=== PATIENT | female | born 1995 | race Caucasian/White ===

== ENCOUNTER → 2019-06-01 09:32 | Outpatient (BNVA) | payer OTHER, SELFPAY | PROVIDERS: Visit Provider Nurse Practitioner Women's Health | DX: Z01.89 Encounter for other specified special examinations (principal) ==

== ENCOUNTER → 2020-12-18 14:33 | Outpatient (BNVA) | payer OTHER, SELFPAY | PROVIDERS: Visit Provider Nurse Practitioner Women's Health | DX: N92.6 Irregular menstruation, unspecified (principal) | CPT/HCPCS: 81025; 84702 ==

== ENCOUNTER → 2021-01-03 09:34 | Outpatient (BNVA) | payer OTHER, SELFPAY | PROVIDERS: Visit Provider Nurse Practitioner Women's Health | DX: Z34.90 Encounter for supervision of normal pregnancy, unspecified, unspecified trimester (principal) | CPT/HCPCS: 81000 ==

== ENCOUNTER → 2021-08-06 13:35 | Outpatient (BNVA) | payer SELFPAY | PROVIDERS: Visit Provider Obstetrics & Gynecology | DX: Z34.91 Encounter for supervision of normal pregnancy, unspecified, first trimester (principal); Z3A.10 10 weeks gestation of pregnancy | CPT/HCPCS: 76801 ==

== ENCOUNTER → 2021-08-13 09:55 | Outpatient (BNVA) | payer SELFPAY | PROVIDERS: Visit Provider Obstetrics & Gynecology | DX: Z34.80 Encounter for supervision of other normal pregnancy, unspecified trimester (principal) | CPT/HCPCS: 80307; 84315; 85027; 86592; 86762; 86803; 86850; 86900; 87086; 87340 ==

== ENCOUNTER → 2021-08-19 09:31 | Outpatient (BNVA) | payer SELFPAY | PROVIDERS: Visit Provider Obstetrics & Gynecology | DX: Z34.80 Encounter for supervision of other normal pregnancy, unspecified trimester (principal) | CPT/HCPCS: 84315; 87491; 87591 ==

== ENCOUNTER 2021-11-11 09:06 | Outpatient (CLI) | payer OTHER, SELFPAY ==
--- NOTE | 2021-11-11 09:30 | US_ITS ---
WS: [id number] ULTRASOUND OB FOCUSED HISTORY: Follow-up profile, diaphragm and nose. COMPARISON: 08/06/2021 Single intrauterine gestation in cephalic position. Cervix is closed measuring 6.4 cm. Placenta is an terior with no previa or abruption. heart rate at 147 BPM. Additional imaging of the profile, diaphragm and nose demonstrates no abnormality. US/US OB limited [id number] IMPRESSION: Follow-up imaging of the profile, diaphragm and nose are negative. No abn ormality identified.
== END 2021-11-11 09:07 | disposition home or self-care (01) ==
LOC: RAD 09:07
PROVIDERS: Visit Provider Obstetrics & Gynecology
DX: Z34.80 Encounter for supervision of other normal pregnancy, unspecified trimester (principal)
CPT/HCPCS: 76805; 76815

== ENCOUNTER → 2021-12-10 09:49 | Outpatient (BNVA) | payer OTHER, SELFPAY | PROVIDERS: Visit Provider Obstetrics & Gynecology | DX: Z34.80 Encounter for supervision of other normal pregnancy, unspecified trimester (principal) | CPT/HCPCS: 82950; 84315; 85027 ==

== ENCOUNTER → 2022-02-05 09:44 | Outpatient (BNVA) | payer OTHER, SELFPAY | PROVIDERS: Visit Provider Nurse Practitioner Women's Health | DX: Z34.80 Encounter for supervision of other normal pregnancy, unspecified trimester (principal) | CPT/HCPCS: 84315; 87081 ==

== ENCOUNTER → 2022-02-11 11:45 | Outpatient (BNVA) | payer OTHER, SELFPAY | PROVIDERS: Visit Provider Nurse Practitioner Women's Health | DX: Z34.80 Encounter for supervision of other normal pregnancy, unspecified trimester (principal) | CPT/HCPCS: 81000 ==

== ENCOUNTER 2022-03-01 18:52 | Inpatient (IN) | payer OTHER, SELFPAY ==
[2022-03-01] VITALS (11 sets, daily range): BP systolic 109–143; BP diastolic 61–82; PULSE 76–95; RESP 16; BMI 37.8
[2022-03-01 17:50] LABS: Basophils % 0.2 %; Eosinophils # 0.1 10^3/uL (0.0-0.8); Eosinophils % 0.5 %; Hematocrit 23.3 % (37.0-47.0); Hemoglobin 7.1 g/dL (11.5-15.3); Lymphocytes # 2.1 10^3/uL (0.8-4.8); Lymphocytes % 14.1 %; Mean Corpuscular HGB Conc 30.5 g/dL (30.0-36.0); Mean Corpuscular Hemoglobin 31.4 pg (28.0-34.0); Mean Corpuscular Volume 103.1 fl (81-99); Mean Platelet Volume 10.3 fL (7.4-10.4); Monocytes # 0.7 10^3/uL (0.2-0.9); Monocytes % 4.8 %; Neutrophils # 11.62 10^3/uL (1.8-7.7); Nucleated Red Blood Cells % 0 %; Platelet Count 148 10^3/cmm (130-400); Red Blood Count 2.26 10^6/uL (4.1-5.3); Red Cell Distribution Width 17.2 % (12.1-15.1); White Blood Count 14.9 10^3/uL (4.0-10.0)
[2022-03-01] MEDS: miSOPROStol 100 mcg tablet 25 MCG VAGINAL (18:02)
[2022-03-01] MEDS: dextrose 5%-lactated ringers 1,000 ML 125 ML IV (18:02)
[2022-03-01] MEDS: ampicillin 2,000 MG in sodium chloride 0.9% (plus) 50 ML 100 MG IV (18:06)
--- NOTE | 2022-03-01 18:34 | PM.OPHPUD ---
Labor & Delivery H&P Update Date of Procedure: March 02, 2022 Date H&P Performed: 02/28/22 H&P update information: I have reviewed H&P completed within last 30 days, I have examined patient prior to procedure and No changes to prior documentation Admission Diagnosis: Preop diagnosis: expected
[2022-03-01] MEDS: ampicillin 1,000 MG in sodium chloride 0.9% (plus) 50 ML 100 MG IV (21:57)
[2022-03-02] VITALS (66 sets, daily range): BP systolic 95–145; BP diastolic 51–86; PULSE 74–112; RESP 14–16; TEMP 35.7–36.8; O2SAT 94–100
[2022-03-02] MEDS: miSOPROStol 100 mcg tablet 25 MCG VAGINAL (00:07)
[2022-03-02] MEDS: ampicillin 1,000 MG in sodium chloride 0.9% (plus) 50 ML 100 MG IV ×3 (01:54→10:16)
[2022-03-02] MEDS: lactated ringers 1,000 ML 999 ML IV (05:05)
--- NOTE | 2022-03-02 06:21 | ANES.PREANE2 ---
Pre-Anesthetic Assessment Height/Weight: Height 1.63 m Weight 99.79 kg Temp Pulse Resp BP Pulse Ox O2 Del Method 97.8 F 88 16 122/60 94 03/02/22 05:37 03/02/22 06:20 03/01/22 17:21 03/02/22 06:20 03/02/22 06:14 03/01/22 16:55 Preop Diagnosis: expected labor epidural Familial anesthetic complications: none Was Beta Onesimo taken within 24 hours: N/A Was Clonidine taken within 24 hours: N/A Last Intake: 05:00 Social No alcohol and No tobacco Exam alert, oriented x 3, clear to auscultation bilaterally and regular rate & rhythm Airway Submandibular: within normal limits Cervical ROM: within normal limits Mallampati: Class II History/ROS No significant history except as noted Pulmonary None reported CV/HEM Anemia None reported Hepatic None reported GI Gastroesophageal Reflux Disease Metabolic None reported Musc/skel None reported Neuropsych None reported Anesthetic Plan ASA status: 2 Anesthesia: Anesthesia Evaluation, Eval. for regional block and Regional (specify below) Risk of > 500 ml blood loss (7ml/kg in children): No Medications/Allergies Home Medications Medication Instructions Recorded Confirmed Last Taken Type prenat.vits,sunitha,[id number]-yqqw-hjswg 1 tab PO DAILY 12/18/20 03/01/22 03/01/22 08:00 History ferrous sulfate 325 mg (65 mg 325 mg PO BID 12/25/21 03/01/22 03/01/22 08:00 History iron) tablet,delayed release Allergies Allergy/AdvReac Type Severity Reaction Status Date / Time No Known Allergies Allergy Verified 03/01/22 17:42 Current Medications Generic Name Dose Route Start Last Admin Trade Name Argenis PRN Reason Stop Dose Admin Dextrose/Lactated Ringer's 1,000 mls @ 125 mls/hr 03/01/22 17:30 03/02/22 02:11 Dextrose 5%-Lactated Ringers IV 125 mls/hr .Q8H CONSUELO Infusion Ampicillin Sodium 1,000 mg/ 50 mls @ 100 mls/hr 03/01/22 21:30 03/02/22 06:00 Sodium Chloride IV 100 mls/hr Q4H CONSUELO Administration Protocol Ropivacaine 200 mg in 100 mls @ 13 mls/hr 03/02/22 05:15 03/02/22 06:16 Naropin Premix EPIDURAL 13 mls/hr .Q7H42M CONSUELO Administration Lactated Ringer's 1,000 mls @ 999 mls/hr 03/02/22 05:05 03/02/22 05:05 Lactated Ringers IV 999 mls/hr .Q1H1M PRN Administration See label comments [facility] Anesthesia Medical History No pertinent past medical history Denies diabetes, asthma, hypertension, seizures, DVT/PE PCP: None Surgical History No pertinent past surgical history Family History Grandfather Hypertension Paternal Family/Other Diabetes Paternal Uncle Denies family history of Colon cancer Ovarian cancer Heart disease Breast cancer Uterine cancer Thyroid disease Stroke Social History Smoking and tobacco status: never smoked Female Reproductive History : 4 Data Anesthesia : 03/01/22 17:20 Short CBC 03/01/22 Range/Units 17:20 WBC 14.9 H (4.0-10.0) 10^3/uL Hgb 7.1 L (11.5-15.3) g/dL Hct 23.3 L (37.0-47.0) % MCV 103.1 H (81-99) fl Plt Count 148 (130-400) 10^3/cmm Neut % (Auto) 78.0 % Neut # (Auto) 11.62 H (1.8-7.7) 10^3/uL Cardiac Studies: No Data to Display Anesthesia Procedures Date of Procedure 03/02/22 Epidural Time Out Performed: Yes Consents Signed: Procedure Consent Consent: requested by attending/covering physician, from patient, risks and benefits reviewed and patient agrees to proceed Lumbar Level: L4-L5 Epidural position: sitting Epidural procedure: sterile prep of area, 1% lidocaine to numb the area, 18 g needle, negative for paresthesia passed, neg for paresthesia, test dose given, 1.5% xylocaine 1:200k epi, placed PCEA, no systemic response, sterile dressing applied, L.U.D. no apparent complications and 0.2% Ropiavacaine @ mls/hr (13)
[2022-03-02] MEDS: dextrose 5%-lactated ringers 1,000 ML 125 ML IV ×2 (12:36→15:27)
[2022-03-02] MEDS: metoclopramide 5 mg/mL SDV 2 mL 10 MG IV (12:58)
[2022-03-02] MEDS: famotidine 20 mg/2 mL INJ IVP (12:59)
--- NOTE | 2022-03-02 14:35 | P.OP_ITS ---
Operative Report Date of procedure: March 02, 2022 Pre-op diagnosis: Preop Diagnosis elective induction, expected , anemia Failure to progress, nonreassuring status Post-op diagnosis: Same as above Procedure done: Primary low transverse delivery Implants: None Specimens removed/disposition: Cord blood sample Surgeon: Bj Hayden MD Estimated blood loss (mL): 1,000 IV fluids (mL): 1,300 Urine output (mL): 600 Procedure: After assuring informed consent, the patient was taken to the operating room and anesthesia was initiated. She was placed in the dorsal supine position with a left lateral tilt. The abdomen was prepped and draped in the usual sterile manner. A time-out procedure was performed. A Pfannenstiel skin incision was made with the scalpel and carried through to the underlying layer of fascia with the Bovie. The fascia was nicked in the midline and the incision extended laterally with the Chao scissors. The superior aspect of the fascial incision was then grasped with Amanda clamps and elevated and the underlying rectus muscle dissected off bluntly and sharp with chao scissors. Attention was then turned to the inferior aspect of the incision which, in similar fashion, was grasped and tented up with Amanda clamps and the rectus muscle dissected bluntly. The rectus muscles were then in the midline and the peritoneum identified, tented up and entered sharply with Metzenbaum scissors. The peritoneal incision was then extended superiorly and inferiorly with good visualization of the bladder. The Dominguez O retractor was then inserted and the vesicouterine p eritoneum identified, grasped with pickups and entered sharply with Metzenbaum scissors. This incision was then extended laterally and the bladder flap created digitally. The uterus incised in a low transverse fashion with the scalpel. The uterine incision was then extended with the bandage scissors. The infant was then delivered in the cephalic presentation atraumatically mentum posterior we will nuchal cord at 0816 hours. The nose and the mouth were suctioned with bulb and the cord clamped and cut. The cord was normal and had three vessels. Amniotic fluid was clear. The placenta was then removed manually and the uterus exteriorized and cleared of all clots and debris. The uterine incision was repaired with 0 Vicryl in a running-locked fashion. A second layer of the same suture was used to obtain excellent hemostasis. The gutters were cleared of all clots. The uterus was then returned to the abdomen. The rectus muscles were approximated with 3-0 chromic gut. The fascia was reapproximated with 0 Vicryl in an interrupted running fashion. The skin was closed with Insorb?s subcuticular absorbable marysol. The incision was infiltrated with Exparel for pain management. The patient tolerated the procedure well. The sponge, lap and needle counts were correct times three.
[2022-03-02] MEDS: docusate sodium 100 mg Capsule PO (18:02)
[2022-03-02] MEDS: ferrous sulfate EC 325 mg Tablet PO (18:02)
[2022-03-02] MEDS: ketorolac 30 mg/mL INJ IVP (18:02)
--- NOTE | 2022-03-02 21:13 | PC.NURSE ---
pt ambulated from chair to bed at this time. tolerated well. pt is now resting comfortably in bed
[2022-03-03] MEDS: ketorolac 30 mg/mL INJ IVP ×3 (00:15→11:06)
[2022-03-03] MEDS: dextrose 5%-lactated ringers 1,000 ML 125 ML IV (00:16)
[2022-03-03 02:41] LABS: Hematocrit 30.6 % (37.0-47.0); Hemoglobin 10.4 g/dL (11.5-15.3); Mean Corpuscular Hemoglobin 29.7 pg (28.0-34.0); Mean Corpuscular Volume 87.4 fl (81-99); Mean Platelet Volume 10.2 fL (7.4-10.4); Platelet Count 106 10^3/cmm (130-400); Red Cell Distribution Width 14.2 % (12.1-15.1); White Blood Count 13.6 10^3/uL (4.0-10.0)
[2022-03-03 04:03] VITALS: BP 127/77; PULSE 106
--- NOTE | 2022-03-03 07:32 | PC.NURSE ---
Met with patient, patient stated that she was feeling very frustrated while having at the breast and that she felt that formula feeding would be a better choice for them. Educated on engorgement, when it is likely to happen, firm fitting bra, cool packs and Ibuprofen for discomfort. Let patient know that if those tools are not enough that she can call and speak to the IBCLC and/or come in for a consultation.
[2022-03-03] MEDS: ferrous sulfate EC 325 mg Tablet PO ×2 (09:18→18:55)
[2022-03-03] MEDS: prenatal vitamin Capsule 1 CAP PO (09:18)
[2022-03-03] MEDS: docusate sodium 100 mg Capsule PO ×2 (09:18→18:56)
[2022-03-03 09:21] VITALS: BP 112/56; PULSE 96; TEMP 36
[2022-03-03 15:00] VITALS: BP 114/72; PULSE 89; RESP 18; TEMP 36.8
[2022-03-03] MEDS: ibuprofen 800 mg tablet PO (20:22)
[2022-03-03 20:28] VITALS: BP 135/73; PULSE 112
[2022-03-04 03:59] VITALS: TEMP 36
[2022-03-04 04:00] VITALS: BP 122/64; PULSE 89
[2022-03-04] MEDS: prenatal vitamin Capsule 1 CAP PO (08:17)
[2022-03-04] MEDS: ferrous sulfate EC 325 mg Tablet PO (08:17)
[2022-03-04] MEDS: docusate sodium 100 mg Capsule PO (08:17)
[2022-03-04] MEDS: ibuprofen 800 mg tablet PO (08:17)
--- NOTE | 2022-03-04 10:36 | ANE.PACU2 ---
Inpatient post-anesthesia follow up: Airway intact: Yes Vital signs: Temperature 96.8 F Pulse Rate 89 Respiratory Rate 18 Blood Pressure 122/64 Pulse Oximetry 100 Oxygen Delivery Me thod Room Air Oxygen Flow Rate 10 Fraction of Inspir ed Oxygen Hydration adequate: Yes Nausea and vomiting: No Pain level: 1 Mental status: Baseline
--- NOTE | 2022-03-04 12:15 | P.DS_ITS ---
Discharge Providers TRANSFORMATION ANALYST Date of Admission: 03/01/22 18:52 Date of Discharge: 03/04/22 Attending Provider at Admission: Bj Hayden MD Attending Provider at Discharge: Bj Hayden MD Primary TRANSFORMATION ANALYST: Katy Pruitt Reason for Visit Reason for Visit: Scheduled Induction Hospital Course Hospital Course Mrs. Nieto be 26-year-old female admitted for elective induction at term. She progressed to about 9 cm in dilation stay at that dilation nearly 4 hours without any progression, initial phase presentation suspected. Primary low termor delivery was performed due to failure to progress. Postop observation was uneventful. She is after vital hemodynamically stable postoperative day 1. Ambulating well without difficulty, and tolerating diet well Information Peripartum Data: Infant Delivery Method: Physical Exam Narrative: GA; alert and oriented x 3 HEENT: normal Breasts: engorged Nipples - skin intact Lungs; clear to auscultation Heart: regular rhythm, no murmurs. Abd: Appropriately tender. BS+. Uterine fundus below umbilicus. No Fundal Tenderness. incision clean and dry, no redness, pain or edema. Perineum: normal lochia. Extremities: no edema, no cyanosis, no tenderness. Urinary Catheter Management: White Latex: Cath Placed During This Visit: yes, but has since been removed by the nurse Reason for Continuing Indwelling Catheter: Decision to DC Catheter Urinary Catheter Date of Insertion: 03/02/22 Urinary Catheter Time of Insertion: 06:35 Date Urinary Catheter Removed: 03/03/22 Time Urinary Catheter Discontinued: 08:15 History History History 4 Term 1 0 Miscarriages/Ectopic 2 Living Children 1 Discharge Data Studies Completed and Pending Laboratory Results WBC 13.6 10^3/uL (4.0-10.0) H 03/03/22 02:32 RBC 3.50 10^6/uL (4.1-5.3) L 03/03/22 02:32 Hgb 10.4 g/dL (11.5-15.3) L 03/03/22 02:32 Hct 30.6 % (37.0-47.0) L 03/03/22 02:32 MCV 87.4 fl (81-99) 03/03/22 02:32 MCH 29.7 pg (28.0-34.0) 03/03/22 02:32 MCHC 34.0 g/dL (30.0-36.0) 03/03/22 02:32 RDW 14.2 % (12.1-15.1) 03/03/22 02:32 Plt Count 106 10^3/cmm (130-400) L 03/03/22 02:32 MPV 10.2 fL (7.4-10.4) 03/03/22 02:32 Neut % (Auto) 78.0 % 03/01/22 17:20 Lymph % (Auto) 14.1 % 03/01/22 17:20 Walker % (Auto) 4.8 % 03/01/22 17:20 Eos % (Auto) 0.5 % 03/01/22 17:20 Baso % (Auto) 0.2 % 03/01/22 17:20 Neut # (Auto) 11.62 10^3/uL (1.8-7.7) H 03/01/22 17:20 Lymph # (Auto) 2.1 10^3/uL (0.8-4.8) 03/01/22 17:20 Walker # (Auto) 0.7 10^3/uL (0.2-0.9) 03/01/22 17:20 Eos # (Auto) 0.1 10^3/uL (0.0-0.8) 03/01/22 17:20 Baso # (Auto) 0.0 10^3/uL (0.0-0.1) 03/01/22 17:20 Nucleated RBC % (auto) 0 % 03/01/22 17:20 Nucleated RBCs # 0.0 /100WBC 03/01/22 17:20 Blood Type O Positive 03/01/22 17:20 Rho(D) Type Positive 03/01/22 17:20 Antibody Screen Negative 03/01/22 17:20 Crossmatch See Detail 03/01/22 17:20 Vitals Last Vital Signs Temp 96.8 F L 03/04/22 03:59 Pulse 89 03/04/22 04:00 Resp 18 03/03/22 15:00 BP 122/64 03/04/22 04:00 Pulse Ox 100 03/02/22 15:10 O2 Del Method 03/02/22 15:10 O2 Flow Rate 10 03/02/22 07:46 Discharge Plan Discharge Patient Disposition: Home Condition: Stable Prescriptions: New hydrocodone-acetaminophen 5-325 mg tablet 1 tab PO Q4H PRN (Reason: pain) Qty: 30 0RF ibuprofen 800 mg tablet 800 mg PO TID PRN (Reason: pain) Qty: 60 0RF acetaminophen 325 mg capsule 325 mg PO Q4H PRN (Reason: fever or pain) Qty: 60 0RF Continued prenat.vits,sunitha,[id number] Tablet 1 tab PO DAILY ferrous sulfate 325 mg (65 mg iron) tablet,delayed release (DR/EC) 325 mg PO BID Discharge Orders: Discharge Order (Routine); Ordered 03/04/22 Ordered By: Bj Hayden Referrals: Bj Hayden MD [Physician] - 03/21/22 3:00 pm (2 week- 03/21/22 @3:00. 6 week- 04/14/22 @ 1:15. ) Discharge Diet: Advance as tolerated and Usual diet Discharge Activity: Limit activity as instructed Patient Instructions: Iron Supplements (By mouth), Vitamins (By mouth), Lanolin (On the skin), Depression (DC), Expression, Collection and Storage of Breast Milk (DC), and Nipple Soreness (ED), How to Increase Your Milk Supply (DC), and Your Diet (DC), Effects of Smoking, Alcohol, and Medicines on (DC), Bleeding (DC), Preeclampsia and Eclampsia After Delivery (GEN), Hemorrhage (DC), OB [facility], OB Discharge Report, OB Care at Home, Opioid Safety, OB Home Care, Abnormal Bleeding Activity Restrictions/Additional Instructions: 1. Please call [facility] on next working day to make your post[-operative] appointment in 2 weeks and 6 week appointment is scheduled for 04/14 @ 1:15 PM . 2. Please stay home until you come back to the clinic on first post-operative check up. 3. Please follow instructions on your medications CAREFULLY. 4. If you have abdominal incision, do not cover it unless dressing is necessary because of drainage. OK to shower, but avoid bath. Leave steri-strips until they fall off. If they are still on one week after surgery, you may remove them. 5. If you had vaginal surgery or vaginal repair, Dr. Hayden may instruct you to take SITZ bath. 6. Yellow, blood tinged odorous vaginal discharge is usually normal after hysterectomy or vaginal surgeries. 7. No sexual intercourse, tampons, or douches until you are completely released from the post-operative care. 8. Avoid constipation by eating right and maybe using some Metamucil or Milk of Magnesia. 9. All prescription refills are given during the working hours. Please do no wait till it runs out. Call the clinic at [phone] before your medication runs out. The clinic will get in touch with your doctor to prescribe medications if necessary. 10. Please remain within 40 mile radius from our hospital because emergencies do happen now and then during the post-operative period. 11. If you have stairs at home, take one step at a time slowly and minimize the number of trips. It helps to stay in one floor for the next few days. No lifting except what you can lift by one hand until you are released from the post-operative care. 12. Driving is discouraged until you are well healed. It may be 3-4 weeks before you feel strong enough to drive. You should be able to turn and look through the rear window without pain and you should be able to push the brake pedal very hard without pain before you drive. No fast rules, but SAFETY should be your primary concern. DO NOT drive if you are on sedating medications such as narcotics. 13. Call the clinic (during working hours) to make urgent appointment or go to the Emergency room, if any of the following occurs: i. Vaginal bleeding becomes heavy, more than a period. ii. Incision becomes red and sore, or drains pus. iii. Your temperature is over 100.4 or you have chill. iv. IV site becomes red and swollen (a little ``knot?? is usually OK) v. Persistent nausea and vomiting vi. Persistent constipation or diarrhea vii. Rash or allergic reaction to medications. Discharge Attestations TRANSFORMATION ANALYST Time Spent in Discharge Care*: greater than 30 min Coding Level of Care Code Acute Used Car Sales Manager for Nini Palomares
[2022-03-04 12:19] VITALS: BP 116/65; PULSE 84
[2022-03-04 12:25] VITALS: RESP 20; TEMP 36.6
[2022-03-04 13:16] VITALS: RESP 20; TEMP 36.6
== END 2022-03-04 13:05 | disposition home or self-care (01) | DRG 788 ==
LOC: OPOB 18:53 → OBGYN 18:53
PROVIDERS: Admitting Provider Obstetrics & Gynecology; Visit Provider Obstetrics & Gynecology
PROC: 10D00Z1 Extraction of Products of Conception, Low, Open Approach (ICD-10-PCS; CPT 59514; principal; 2022-03-02 13:00)
DX: O32.4XX0 Maternal care for high head at term, not applicable or unspecified (principal); O77.9 Labor and delivery complicated by fetal stress, unspecified; O99.02 Anemia complicating childbirth; D64.9 Anemia, unspecified; Z3A.40 40 weeks gestation of pregnancy; Z37.0 Single live birth
CPT/HCPCS: 36415; 51702; 59025; 85025; 85027; 86850; 86900; 86920; 96374; 96376; 99211; C9290; J0171; J0290; J1885; J2274; J2405; J2765; J2795; J3490; J7030; P9016

== ENCOUNTER → 2022-05-05 14:15 | Outpatient (BNVA) | payer OTHER, SELFPAY | PROVIDERS: Visit Provider Obstetrics & Gynecology | DX: Z12.4 Encounter for screening for malignant neoplasm of cervix (principal) | CPT/HCPCS: 88175 ==